=== PATIENT | male | born 1970 | race Two or more races ===

== ENCOUNTER 2022-01-09 19:32 | Emergency (ER) | payer SELFPAY ==
[~2022-01-09] VITALS: Ht 172.7 cm; Wt 124.7 kg
[2022-01-09 20:30] VITALS: BP 141/82
== END 2022-01-09 23:22 | disposition home or self-care (01) ==
LOC: ER 19:35
DX: S06.0X0A Concussion without loss of consciousness, initial encounter (principal); W22.8XXA Striking against or struck by other objects, initial encounter; Y93.89 Activity, other specified; Y92.89 Other specified places as the place of occurrence of the external cause; Y99.8 Other external cause status
CPT/HCPCS: 70450; 72125